=== PATIENT | female | born 1965 | race Caucasian/White ===

== ENCOUNTER 2017-05-16 06:51 | Day surgery (SDC) | END 2017-05-16 11:40 | disposition home or self-care (01) | DX: N95.0 Postmenopausal bleeding (principal); D25.0 Submucous leiomyoma of uterus | CPT/HCPCS: 58558; 84703; 88305; 93005; J1170; J2405; J2765; J3010 ==

== ENCOUNTER 2018-10-16 06:42 | Emergency (ER) | payer OTHER ==
[~2018-10-16] VITALS: Ht 165.1 cm; Wt 68.8 kg
[~2018-10-16 06:42] MED LIST: NO MEDS.
[2018-10-16 06:45] VITALS: Ht 165.1 cm; Wt 68.8 kg
[2018-10-16] MEDS ORDERED: morphine 4 MG/ML VIAL IV STA (07:17)
[2018-10-16] MEDS ORDERED: SOD CHLORIDE 0.9% 1,000 ML IV STA (07:17)
[2018-10-16] MEDS ORDERED: KETOROLAC 30 MG INJ IV STA (07:17)
[2018-10-16] MEDS ORDERED: ONDANSETRON 4 MG INJ IV STA (07:17)
--- NOTE | 2018-10-16 08:01 | ERD ---
ER Documentation Chief Complaint Chief Complaint pelvic pain radiating to left flank & vomitting since am HPI During the patient's encounter translation services were utilized Language: Tamaz[place] Source: Video 53-year-old female with remote history of ureteral stone and kidney stone presents with sudden onset of left flank pain radiating to the left lower abdomen. The pain is 8 out of 10 and colicky. The pain is very similar to ureteral stone in the past. She did not require surgical intervention at that time. She denies any fevers or chills, no mid back pain, no numbness or tingling. ROS All systems reviewed and are negative except as per history of present illness. Medications Home Meds Reported Medications [No Meds.] No Conflict Check 06/24/16 Allergies Allergies: Coded Allergies: ibuprofen (Verified Allergy, Unknown, 10/16/18) PMhx/Soc History of Surgery: No Anesthesia Reaction: No Hx Neurological Disorder: No Hx Respiratory Disorders: No Hx Cardiac Disorders: No Hx Psychiatric Problems: No Hx Miscellaneous Medical Probl: No Hx Alcohol Use: No Hx Substance Use: No Hx Tobacco Use: No Smoking Status: Never smoker FmHx Family History: No diabetes Physical Exam Vitals Vital Signs Date Temp Pulse Resp B/P (MAP) Pulse Ox O2 O2 Flow FiO2 Time Delivery Rate 10/16/18 98.0 66 18 173/102 99 06:45 (125) Physical Exam General: uncomfortable Head: Normocephalic, atraumatic. Eyes: Pupils equally reactive, EOM intact ENT: Moist mucous membranes Neck: Supple, no lymphadenopathy Respiratory: Lungs clear bilaterally, no distress Cardiovascular: RRR, no murmurs, rubs, or gallops Abdominal: Soft, non-tender, non-distended, no peritoneal signs : Deferred MSK: No edema, no unilateral swelling, 5/5 strength Neurologic: Alert and oriented, moving all extremities, normal speech, no focal weakness, no cerebellar signs Skin: No rash Psych: Normal mood Result Diagram: 10/16/18 0715 10/16/18 0715 Results 24 hrs Laboratory Tests Test 10/16/18 07:15 White Blood Count 9.6 10^3/ul Red Blood Count 5.29 10^6/ul Hemoglobin 14.9 g/dl Hematocrit 45.4 % Mean Corpuscular Volume 85.8 fl Mean Corpuscular Hemoglobin 28.2 pg Mean Corpuscular Hemoglobin Concent 32.8 g/dl Red Cell Distribution Width 13.3 % Platelet Count 202 10^3/UL Mean Platelet Volume 11.0 fl Immature Granulocytes % 0.400 % Neutrophils % 80.8 % Lymphocytes % 13.3 % Monocytes % 4.7 % Eosinophils % 0.5 % Basophils % 0.3 % Nucleated Red Blood Cells % 0.0 /100WBC Immature Granulocytes # 0.040 10^3/ul Neutrophils # 7.8 10^3/ul Lymphocytes # 1.3 10^3/ul Monocytes # 0.5 10^3/ul Eosinophils # 0.1 10^3/ul Basophils # 0.0 10^3/ul Nucleated Red Blood Cells # 0.0 10^3/ul Urine Color YELLOW Urine Clarity CLOUDY Urine pH 5.0 Urine Specific [place] 1.020 Urine Ketones NEGATIVE mg/dL Urine Nitrite NEGATIVE mg/dL Urine Bilirubin NEGATIVE mg/dL Urine Urobilinogen NEGATIVE mg/dL Urine Leukocyte Esterase TRACE Angela/ul Urine Microscopic RBC > 182 /HPF Urine Microscopic WBC 11 /HPF Urine Squamous Epithelial Cells FEW /HPF Urine Bacteria FEW /HPF Urine Mucus MODERATE /HPF Urine Hemoglobin 3+ mg/dL Urine Glucose NEGATIVE mg/dL Urine Total Protein 1+ mg/dl Sodium Level 144 mmol/L Potassium Level 4.2 mmol/L Chloride Level 110 mmol/L Carbon Dioxide Level 27 mmol/L Anion Gap 7 Blood Urea Nitrogen 16 mg/dl Creatinine 0.85 mg/dl Est Glomerular Filtrat Rate mL/min > 60 mL/min Glucose Level 106 mg/dl Calcium Level 9.5 mg/dl Total Bilirubin 0.7 mg/dl Direct Bilirubin 0.00 mg/dl Indirect Bilirubin 0.7 mg/dl Aspartate Amino Transf (AST/SGOT) 25 IU/L Alanine Aminotransferase (ALT/SGPT) 25 IU/L Alkaline Phosphatase 117 IU/L Total Protein 7.6 g/dl Albumin 4.2 g/dl Globulin 3.40 g/dl Albumin/Globulin Ratio 1.23 Lipase 61 U/L Current Medications Medications Dose Sig/Monisha Start Time Status Last (Trade) Ordered Route PRN Stop Time Admin Dose Reason Admin Sodium 1,000 ml @ Q1H STAT 10/16/18 10/16/18 Chloride 1,000 mls/hr IV 07:17 10/16/18 07:27 08:16 Morphine 4 mg ONCE STAT 10/16/18 DC 10/16/18 Sulfate IV 07:17 10/16/18 07:27 (morphine) 07:19 Ondansetron 4 mg ONCE STAT 10/16/18 DC 10/16/18 HCl (Zofran IV 07:17 10/16/18 07:27 Inj) 07:19 Ketorolac 30 mg ONCE STAT 10/16/18 DC 10/16/18 Tromethamine IV 07:17 10/16/18 07:27 (Toradol) 07:19 Procedures/MDM LAB INTERPRETATION: I reviewed the laboratory testing and it shows no evidence of acute process MEDICAL DECISION MAKING: The patient's symptoms are very consistent with ureteral colic and likely kidney stone. The patient has no alternative signs or symptoms concerning for acute intra-abdominal process, acute vascular process. I would like to avoid unnecessary CT imaging in this patient. She will benefit from pain control. If the patient has no evidence of persistent pain, infection or renal failure I do not believe CT imaging would be necessary. The patient can likely be managed on an outpatient basis with pain medications and symptom control. Patient's blood pressure was elevated (>120/80) but appears stable without evid ence of hypertensive emergency or urgency. The patient was counseled about the risks of hypertension and urged to pursue outpatient monitoring and therapy within a week with their primary care physician. ER COURSE: * Patient given IV fluids and pain control medication. Laboratory testing shows no evidence of complication or infection. * At this point I feel the patient can be safely discharged with outpatient management. Urology referral has been provided. CONSULTATION: None DISPOSITION PLAN: The patient does not have an identifiable emergent medical condition that warrants inpatient hospitalization at this time. The patient is deemed safe for discharge with outpatient follow-up. We discussed follow up with the patient's primary care doctor within 24 to 48 hours as needed. We also discussed return to the emergency room for worsening symptoms or worsening condition. Outpatient referral: Urology Discharge Medications: Wendel, Zofran, Motrin NARCOTIC MEDICATION: The patient has been prescribed a narcotic medication during this encounter. The patient has been warned about the use of narcotics. The patient should not drive or operate heavy machinery while taking this medication. The patient was also warned about the addictive properties of narcotic medications. Narcan prescription was NOT provided given the following criteria: 1. No more than 5 tablets of Wendel 10 mg or 10 tablets of Wendel 5 mg were prescribed. 2. Concomitant opiate and benzodiazepine prescriptions were not provided. 3. There is no obvious evidence of prior history of opiate abuse or overdose. Departure Diagnosis: Primary Impression: Ureteral colic Additional Impression: Acute left flank pain Condition: Stable ROSLYN GRAYSON MD Oct 16, 2018 08:01
[2018-10-16] MEDS ORDERED: HYDR-4011 PO (08:28)
[2018-10-16] MEDS ORDERED: TAMS-14 PO (08:28)
[2018-10-16] MEDS ORDERED: ONDA4TAB14 PO (08:28)
[2018-10-16] MEDS ORDERED: IBUP800T48 PO (08:28)
[2018-10-16 08:59] VITALS: BP 120/80; PULSE 74; RESP 17
== END 2018-10-16 09:00 | disposition home or self-care (01) ==
LOC: E/R 06:42
DX: N36.8 Other specified disorders of urethra (principal)
CPT/HCPCS: 36415; 80053; 81001; 83690; 85025; 87086; 96374; 96375; 99284; J1885; J2270; J2405; J7030